=== PATIENT | male | born 1960 | race African-American/Black ===

== ENCOUNTER 2016-05-08 19:15 | Inpatient (IN) | payer BC ==
[~2016-05-08] VITALS: Ht 185.4 cm; Wt 114.8 kg
--- NOTE | ~2016-05-08 | H ---
[facility] [address] [address] HISTORY AND PHYSICAL Name: BRIANNA STALEY Room #: 459-P [facility] IN M.R.#: [id number] Admission: 05/08/16 Attend Phys: Asaf Saini Discharge: 05/11/16 Date of : 62 Report #: [id number] THIS REPORT FOR: //name// CC: Moris Simon DATE OF SERVICE: 05/08/2016 ATTENDING PHYSICIAN: Ton Simon M.D. PRIMARY CARE PHYSICIAN: Elia Brandon M.D. CHIEF COMPLAINT: Abdominal pain. HISTORY OF PRESENT ILLNESS: The patient is a 56-year-old -Citizen Of [place] female who said he was feeling fine up until yesterday morning. He woke up with abdominal pain. The pain was a burning sensation. It did radiate under both ribs. He denies any associated nausea, vomiting or diarrhea. He had a normal bowel movement this morning. Denies any fevers or chills. The prior night, he had drunk some tequila. He says he normally just drinks on weekends, but he did have some tequila yesterday. He has had pancreatitis once in the past in 2006 and states his symptoms were similar, but he was having worst pain Previously. He did receive some pain medication in the ER and now states that it has worn off and is requesting pain medicine. PAST MEDICAL HISTORY: Diabetes, hypertension and anxiety. PAST SURGICAL HISTORY: None. ALLERGIES: LISINOPRIL caused angioedema with facial swelling. HOME MEDICATIONS: Amlodipine 5 mg daily, valsartan 320 mg daily, tramadol 50 mg every 4-6 hours p.r.n., clonazepam 1 mg t.i.d., Neurontin 300 mg b.i.d., bupropion 300 mg daily, trazodone 150 mg at bedtime, Seroquel 100 mg at bedtime, hydrochlorothiazide 12.5 mg daily, Lantus insulin 50 units at bedtime, but he says if his blood sugar is less than 80, he does not take it and Humalog insulin sliding scale with meals. SOCIAL HISTORY: The patient lives at home with his . He does smoke about 6 cigarettes per day. He says he is cutting back. He previously had smoked up to 1 pack of cigarettes per day for about 25 years. He does drink alcohol. He currently states he drinks hard alcohol up to 3-4 drinks only on weekends. He last drank some tequila yesterday. He says he does not drink every day, and he does not have any history of alcohol withdrawal. Previous ER visit from February of this year stated that he has a history of alcoholism and had been sober for 6 years until he started drinking again in 01/2016. During that ER visit in [address] [address] HISTORY AND PHYSICAL Name: BRIANNA STALEY Room #: 459-P [facility] IN M.R.#: [id number] Admission: 05/08/16 Attend Phys: Asaf Saini Discharge: 05/11/16 Date of : 62 Report #: [id number] February, he was intoxicated with an alcohol level of 287. He lives at home with his . He works for [employer]. FAMILY HISTORY: His mother from natural causes. His father from an [place] at the age of 49. REVIEW OF SYSTEMS: A 12-point review of systems was reviewed with the patient and otherwise negative unless stated in the HPI. PHYSICAL EXAMINATION: GENERAL: The patient is an alert male in no acute distress. VITAL SIGNS: Temperature is 36.9, heart rate 117, respirations 20, blood pressure is 123/80 and oxygen 99% on room air. HEENT: PERRLA. Sclerae are nonicteric. Oral mucosa is pink and moist. NECK: Supple, no JVD noted. CARDIOVASCULAR: Normal S1 and S2. No murmurs, rubs or gallops. RESPIRATORY: Breath sounds are clear bilaterally. No wheezing or rhonchi. Breathing is nonlabored. ABDOMEN: Round and soft. He is tender in the left upper quadrant and epigastric areas. Bowel sounds are positive. VASCULAR: Trace bilateral lower extremity edema. Pedal pulses are 2+. NEUROLOGIC: The patient is alert and oriented x 3. Speech is clear. He is answering questions appropriately and follows commands. No focal weakness noted. PSYCHIATRIC: The patient is pleasant and cooperative, although he is somewhat anxious appearing. LABORATORY AND DIAGNOSTIC DATA: WBC is 9.2, hemoglobin 16.4 and platelets 147. Sodium 128, potassium 3.8, BUN 7, creatinine 1.4, glucose 206, bilirubin is 1.2, AST 130 and ALT 74. Alcohol level is less than 10. Lipase level is greater than 1500. Abdominal ultrasound showed no cholelithiasis with normal common bile duct. There was mild prominence of the pancreas and hepatomegaly and CT of the abdomen shows findings consisting with acute pancreatitis. There is also hepatic steatosis. ASSESSMENT AND PLAN: 1. Acute pancreatitis. This is likely alcohol induced as he did drink hard alcohol yesterday. We will also check a triglyceride level. Continue with IV fluids, antiemetics and n.p.o. status. Continue with Dilaudid for pain control. We will repeat a lipase in the morning. 2. Alcohol abuse. The patient denies daily use. He does have a history of alcoholism with binge drinking. We will monitor for any signs of alcohol withdrawal. His current alcohol level is less than 10, so he may start to have some withdrawal symptoms soon. We will use Ativan p.r.n. He does have some mildly elevated liver enzymes, which is likely due to chronic alcohol use as well. [facility] [address] [place] [address] HISTORY AND PHYSICAL Name: BRIANNA STALEY Room #: 459-P [facility] IN M.R.#: [id number] Admission: 05/08/16 Attend Phys: Asaf Saini Discharge: 05/11/16 Date of : 62 Report #: [id number] 3. Acute kidney injury. The patient denies any history of chronic kidney disease. We will gently hydrate and follow labs. 4. Hypertension. Blood pressure is stable. Resume home meds and monitor. We will hold hydrochlorothiazide since we are giving IV fluids. 5. Diabetes. Blood sugars are elevated. We will add sliding scale insulin but hold Lasix while n.p.o. 6. Anxiety. This may be a component of alcohol withdrawal. We will add Ativan p.r.n. 7. Deep vein thrombosis prophylaxis. Place sequential compression devices. 8. Hyponatremia likely due to alcohol use and mild dehydration. Continue with normal saline and follow labs. 9. Tobacco abuse. The patient has been advised to quit. He denies a need for a nicotine patch. We will continue to follow the patient closely throughout the hospitalization and make changes based on clinical status. <ELECTRONICALLY SIGNED> By: JESSICA Latham 05/16/16 0646 [id number] 0321 JESSICA Latham /nt
--- NOTE | ~2016-05-08 | EKG ---
[address] [place] [address] ELECTROCARDIOGRAM REPORT Name: BRIANNA STALEY Room #: 459-[facility] IN M.R.#: [id number] Admission: 05/08/16 Attend Phys: Asaf Saini Discharge: 05/11/16 Date of : 62 Report #: [id number] THIS REPORT FOR: //name// [facility] Test Date: 2016-05-09 Test Time: 10:48:11 Pat Name: BRIANNA STALEY Department: Room: 459 Gender: M Net Trainer: [facility] : 1960 Requested By: Asaf Saini Order Number: [id number] MD: Keanu Rodriguez Measurements Intervals [place] Rate: 106 P: 67 [place]: 146 QRS: 121 QRSD: 94 T: 27 QT: 354 QTc: 471 Interpretive Statements Sinus tachycardia Left posterior fascicular block Abnormal R-wave progression, late transition No previous ECGs available for comparison Electronically Signed On 05-13-2016 8:04:20 DEVELOPMENT ENGINEER by Keanu Rodriguez [email or web address] <ELECTRONICALLY SIGNED> By: Keanu Rodriguez MD, [facility] 05/13/16 0804 1048 1048 Keanu Rodriguez MD, [facility] /EPI
[~2016-05-08 19:15] MED LIST: AMBIEN 5 MG TABL5 M1 PO; DIOVAN320 MG PO; FLEXERIL PO; HUMALOG100 UNIT/1 SQ; IBUPROFEN 600600 M1 PO; LANTUS100 UNIT/M SUBQ; NORCO 5-325 TA1 EACH PO; NORVASC 5 MG TAB5 MG PO; QUINU10 PD; TRAZODONE 150150 M1 PO; ULTRAM 50MG TAB50 MG PO
[2016-05-08 19:17] VITALS: BP 123/80
[2016-05-08] MEDS ORDERED: WELLBUTRIN SR200 MG PO (19:19)
[2016-05-08 19:42] LABS: ABSOLUTE NEUTROPHILS 7.1 thou/uL (1.4-8.2); BASOPHILS 0.5 % (0.0-2.0); EOSINOPHILS 0.6 % (0.0-3.0); HEMATOCRIT 46.7 % (42.0-52.0); HEMOGLOBIN 16.4 gm/dL (14.0-18.0); LYMPHOCYTES 17.4 % (24.0-44.0); MCH 32.5 pg (26.0-34.0); MCHC 35.2 % (28.0-37.0); MCV 92.4 fL (80.0-100.0); MONOCYTES 4.5 % (1.0-8.0); PLATELET COUNT 147 thou/uL (150-400); RBC 5.05 mil/uL (4.50-6.00); RDW 14.2 % (10.5-14.5); WBC 9.2 thou/uL (4.0-11.0)
[2016-05-08 19:45] LABS: MANUAL DIFF NO
[2016-05-08 19:51] LABS: POTASSIUM 3.8 mmol/L (3.5-5.1)
[2016-05-08 20:18] LABS: CALCIUM 7.4 mg/dL (8.5-10.1); CREATININE 1.4 mg/dL (0.6-1.3)
[2016-05-08 20:23] LABS: TOTAL PROTEIN 6.5 g/dL (6.4-8.2)
[2016-05-08 20:24] LABS: ALBUMIN 3.8 g/dL (3.4-5.0); TOTAL BILIRUBIN 1.2 mg/dL (<0.1-1.0)
[2016-05-08 20:25] LABS: DIRECT BILIRUBIN 0.4 mg/dL (<0.1-0.3)
[2016-05-08 22:09] VITALS: BP 118/79
[2016-05-08 22:20] VITALS: BP 142/85; BP 142/858
[2016-05-09] VITALS (12 sets, daily range): BP systolic 78–107; BP diastolic 30–523
[2016-05-09] MEDS ORDERED: CLONAZEPAM 1 MG1 M1 PO (01:59)
[2016-05-09] MEDS ORDERED: NEURONTIN 300300 M1 PO (02:01)
[2016-05-09] MEDS ORDERED: HYDROCHLOROTH12.5 M1 PO (02:01)
[2016-05-09] MEDS ORDERED: SEROQUEL 50 MG50 MG PO (02:02)
[2016-05-09 06:17] LABS: HEMATOCRIT 42.9 % (42.0-52.0); HEMOGLOBIN 14.9 gm/dL (14.0-18.0); MCH 31.9 pg (26.0-34.0); MCHC 34.8 % (28.0-37.0); MCV 91.8 fL (80.0-100.0); RBC 4.67 mil/uL (4.50-6.00); RDW 14.3 % (10.5-14.5); WBC 14.3 thou/uL (4.0-11.0)
[2016-05-09 06:48] LABS: CALCIUM 6.5 mg/dL (8.5-10.1); CREATININE 2.3 mg/dL (0.6-1.3); POTASSIUM 3.9 mmol/L (3.5-5.1)
[2016-05-10 00:06] LABS: GLYCOHEMOGLOBIN (HGB A1C) 5.8 % (4.8-5.6)
[2016-05-10 04:21] LABS: HEMATOCRIT 36.7 % (42.0-52.0); MCH 31.7 pg (26.0-34.0); MCHC 33.9 % (28.0-37.0); MCV 93.6 fL (80.0-100.0); RBC 3.93 mil/uL (4.50-6.00); RDW 14.7 % (10.5-14.5)
[2016-05-10 04:22] LABS: HEMOGLOBIN 12.5 gm/dL (14.0-18.0)
[2016-05-10 04:35] LABS: INR 1.1; PROTIME 11.9 Seconds (9.3-11.4)
[2016-05-10 04:43] LABS: ALBUMIN 2.3 g/dL (3.4-5.0); CREATININE 2.5 mg/dL (0.6-1.3); MAGNESIUM 1.6 mg/dL (1.8-2.4); POTASSIUM 4.1 mmol/L (3.5-5.1); TOTAL BILIRUBIN 0.9 mg/dL (<0.1-1.0); TOTAL PROTEIN 5.9 g/dL (6.4-8.2)
[2016-05-10 04:58] LABS: CALCIUM 6.1 mg/dL (8.5-10.1)
[2016-05-10 05:00] VITALS: BP 83/50
[2016-05-10 08:00] VITALS: BP 92/55
[2016-05-10 12:00] VITALS: BP 104/63
[2016-05-10 16:00] VITALS: BP 114/71
[2016-05-10 20:15] VITALS: BP 110/63
[2016-05-10 23:12] VITALS: BP 111/73
[2016-05-11 02:07] LABS: GLYCOHEMOGLOBIN (HGB A1C) 5.8 % (4.8-5.6)
[2016-05-11 04:52] VITALS: BP 129/72
[2016-05-11 05:42] LABS: HEMATOCRIT 29.2 % (42.0-52.0); MCH 32.4 pg (26.0-34.0); MCHC 34.1 % (28.0-37.0); MCV 94.9 fL (80.0-100.0); RBC 3.07 mil/uL (4.50-6.00); RDW 14.5 % (10.5-14.5); WBC 10.6 thou/uL (4.0-11.0)
[2016-05-11 05:51] LABS: HEMOGLOBIN 9.9 gm/dL (14.0-18.0)
[2016-05-11 05:58] LABS: ALBUMIN 1.9 g/dL (3.4-5.0); POTASSIUM 3.6 mmol/L (3.5-5.1); TOTAL BILIRUBIN 0.9 mg/dL (<0.1-1.0); TOTAL PROTEIN 5.5 g/dL (6.4-8.2)
[2016-05-11 06:00] LABS: CREATININE 1.3 mg/dL (0.6-1.3)
[2016-05-11 06:04] LABS: CALCIUM 5.8 mg/dL (8.5-10.1)
[2016-05-11 08:00] VITALS: BP 144/82
[2016-05-11 11:43] VITALS: BP 106/64
[2016-05-11] MEDS ORDERED: FLOMAX0.4 MG PO (12:25)
[2016-05-11] MEDS ORDERED: GEMFIBROZIL 60600 M1 PO (12:25)
[2016-05-11 12:59] VITALS: BP 106/64
== END 2016-05-11 14:03 | disposition home or self-care (01) | DRG 439 ==
LOC: ER 19:15 → 4E 21:47 → EROBS 21:47 → 4E 22:10 → 4W 05-09 11:15
PROVIDERS: Emergency Medicine; Hospitalist; Nurse Practitioner Acute Care
DX: K85.20 Alcohol induced acute pancreatitis without necrosis or infection (principal); N17.9 Acute kidney failure, unspecified; E87.1 Hypo-osmolality and hyponatremia; F10.10 Alcohol abuse, uncomplicated; E86.0 Dehydration; F41.9 Anxiety disorder, unspecified; I10 Essential (primary) hypertension; E11.9 Type 2 diabetes mellitus without complications; F17.210 Nicotine dependence, cigarettes, uncomplicated; Z88.8 Allergy status to other drugs, medicaments and biological substances; Z79.4 Long term (current) use of insulin; Y90.9 Presence of alcohol in blood, level not specified; Z82.49 Family history of ischemic heart disease and other diseases of the circulatory system
CPT/HCPCS: 10045; 10183

== ENCOUNTER 2017-04-07 17:13 | Inpatient (IN) | payer BC ==
[~2017-04-07] VITALS: Ht 185.4 cm; Wt 122.5 kg
--- NOTE | ~2017-04-07 | EKG ---
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[facility] : 1960 Requested By: Checo Freeman Order Number: [id number] MD: Guillermo Harrington Measurements Intervals [place] Rate: 69 P: 42 NC: 155 QRS: -55 QRSD: 106 T: 23 QT: 432 QTc: 463 Interpretive Statements Sinus rhythm Left anterior fascicular block Abnormal R-wave progression, late transition Compared to ECG 05/09/2016 10:48:11 Left anterior fascicular block now present Sinus tachycardia no longer present Left posterior fascicular block no longer present Electronically Signed On 04-07-2017 20:24:20 INSECTICIDE SPRAYER by Guillermo Harrington [email or web address] <ELECTRONICALLY SIGNED> By: Guillermo Harrington MD 04/07/172023 18 18 Guillermo Harrington MD /EPI
[~2017-04-07 17:13] MED LIST changes: +CLONAZEPAM 1 MG1 M1 PO; +FLOMAX0.4 MG PO; +GEMFIBROZIL 60600 M1 PO; +HYDROCHLOROTH12.5 M1 PO; +NEURONTIN 300300 M1 PO; +SEROQUEL 50 MG50 MG PO; +WELLBUTRIN SR200 MG PO
[2017-04-07 17:22] VITALS: BP 130/84
[2017-04-07 18:23] LABS: ABSOLUTE NEUTROPHILS 6.7 thou/uL (1.4-8.2); BASOPHILS 0.2 % (0.0-2.0); EOSINOPHILS 0.2 % (0.0-3.0); HEMATOCRIT 44.5 % (42.0-52.0); HEMOGLOBIN 15.2 gm/dL (14.0-18.0); LYMPHOCYTES 12.9 % (24.0-44.0); MCH 30.5 pg (26.0-34.0); MCHC 34.1 g/dL (28.0-37.0); MCV 89.6 fL (80.0-100.0); MONOCYTES 5.7 % (1.0-8.0); PLATELET COUNT 157 thou/uL (150-400); RBC 4.97 mil/uL (4.50-6.00); RDW 13.4 % (10.5-14.5); WBC 8.3 thou/uL (4.0-11.0)
[2017-04-07 18:27] LABS: ANION GAP 12 mmol/L (7-16); BUN 20 mg/dL (7-18); CALCIUM 8.4 mg/dL (8.5-10.1); CHLORIDE 94 mmol/L (98-107); CO2 27 mmol/L (21-32); CREATININE 1.6 mg/dL (0.7-1.3); GLUCOSE 150 mg/dL (74-106); POTASSIUM 3.3 mmol/L (3.5-5.1); SODIUM 133 mmol/L (136-145)
[2017-04-07 18:28] LABS: MANUAL DIFF NO
[2017-04-07 18:54] LABS: ALBUMIN 3.8 g/dL (3.4-5.0); ALKALINE PHOSPHATASE 54 U/L (46-116); DIRECT BILIRUBIN 0.2 mg/dL (<0.1-0.3); SGPT 88 U/L (30-65); TOTAL BILIRUBIN 1.1 mg/dL (<0.1-1.0); TOTAL PROTEIN 7.1 g/dL (6.4-8.2); TROPONIN-I < 0.04 ng/mL (<0.06)
[2017-04-07 18:59] LABS: SGOT 60 U/L (15-37)
[2017-04-07 20:45] VITALS: BP 130/84
[2017-04-07 21:04] VITALS: BP 137/76
[2017-04-07] MEDS ORDERED: SYNTHROID100 MCG PO (21:04)
[2017-04-07 22:00] VITALS: BP 115/68
[2017-04-08 03:57] LABS: HEMATOCRIT 42.1 % (42.0-52.0); HEMOGLOBIN 14.3 gm/dL (14.0-18.0); MCH 30.6 pg (26.0-34.0); MCV 89.9 fL (80.0-100.0); RBC 4.68 mil/uL (4.50-6.00); RDW 13.5 % (10.5-14.5)
[2017-04-08 03:58] LABS: ALBUMIN 3.2 g/dL (3.4-5.0); CALCIUM 7.9 mg/dL (8.5-10.1); CREATININE 1.2 mg/dL (0.7-1.3); POTASSIUM 3.6 mmol/L (3.5-5.1); TOTAL PROTEIN 6.4 g/dL (6.4-8.2)
[2017-04-08 04:00] VITALS: BP 131/74
[2017-04-08 07:55] VITALS: BP 146/86
[2017-04-08 09:08] LABS: GLYCOHEMOGLOBIN (HGB A1C) 6.7 % (4.8-5.6)
[2017-04-08 15:30] VITALS: BP 136/83
[2017-04-08 19:45] VITALS: BP 136/76
[2017-04-09 03:37] VITALS: BP 141/74
[2017-04-09 06:24] LABS: ABSOLUTE NEUTROPHILS 4.1 thou/uL (1.4-8.2); BASOPHILS 0.2 % (0.0-2.0); EOSINOPHILS 3.3 % (0.0-3.0); HEMATOCRIT 38.3 % (42.0-52.0); HEMOGLOBIN 12.9 gm/dL (14.0-18.0); MCH 30.6 pg (26.0-34.0); MCHC 33.5 g/dL (28.0-37.0); MCV 91.3 fL (80.0-100.0); MONOCYTES 5.3 % (1.0-8.0); PLATELET COUNT 105 thou/uL (150-400); POLYS 64.2 % (36.0-66.0); RDW 13.6 % (10.5-14.5); WBC 6.3 thou/uL (4.0-11.0)
[2017-04-09 06:28] LABS: MANUAL DIFF NO
[2017-04-09 06:43] LABS: ALBUMIN 2.7 g/dL (3.4-5.0); CREATININE 1.1 mg/dL (0.7-1.3); MAGNESIUM 2.1 mg/dL (1.8-2.4); POTASSIUM 3.6 mmol/L (3.5-5.1); TOTAL BILIRUBIN 0.7 mg/dL (<0.1-1.0); TOTAL PROTEIN 6.2 g/dL (6.4-8.2)
[2017-04-09 08:03] VITALS: BP 150/79
[2017-04-09 17:05] VITALS: BP 160/90
[2017-04-09 19:56] VITALS: BP 151/83
[2017-04-10 03:31] VITALS: BP 133/81
[2017-04-10 04:37] LABS: HEMATOCRIT 35.4 % (42.0-52.0); HEMOGLOBIN 11.8 gm/dL (14.0-18.0); MCH 30.5 pg (26.0-34.0); MCHC 33.2 g/dL (28.0-37.0); MCV 91.7 fL (80.0-100.0); RBC 3.86 mil/uL (4.50-6.00); RDW 13.3 % (10.5-14.5); WBC 5.3 thou/uL (4.0-11.0)
[2017-04-10 04:50] LABS: CALCIUM 8.2 mg/dL (8.5-10.1); CREATININE 1.1 mg/dL (0.7-1.3); MAGNESIUM 2.1 mg/dL (1.8-2.4); POTASSIUM 3.9 mmol/L (3.5-5.1)
[2017-04-10 07:37] VITALS: BP 163/104
[2017-04-10 15:36] VITALS: BP 158/95
[2017-04-10 20:00] VITALS: BP 167/84
[2017-04-11 03:33] LABS: HEMATOCRIT 36.6 % (42.0-52.0); HEMOGLOBIN 12.1 gm/dL (14.0-18.0); MCH 30.3 pg (26.0-34.0); MCHC 33.2 g/dL (28.0-37.0); MCV 91.1 fL (80.0-100.0); RBC 4.02 mil/uL (4.50-6.00); RDW 13.5 % (10.5-14.5); WBC 4.7 thou/uL (4.0-11.0)
[2017-04-11 03:44] LABS: CALCIUM 9.2 mg/dL (8.5-10.1); CREATININE 1.1 mg/dL (0.7-1.3); POTASSIUM 3.7 mmol/L (3.5-5.1)
[2017-04-11 04:30] VITALS: BP 158/89
[2017-04-11 07:50] VITALS: BP 156/95
[2017-04-11] MEDS ORDERED: PERCOCET PO (08:45)
[2017-04-11 09:01] VITALS: BP 156/95
[2017-04-11] MEDS ORDERED: GEMFIBROZIL 60600 M1 PO (13:28)
== END 2017-04-11 13:51 | disposition home or self-care (01) | DRG 439 ==
LOC: ER 17:13 → 4E 20:10 → EROBS 20:10 → 4E 21:20
PROVIDERS: Hospitalist; Internal Medicine; Nurse Practitioner; Nurse Practitioner Acute Care; Registered Nurse
DX: K85.90 Acute pancreatitis without necrosis or infection, unspecified (principal); N17.9 Acute kidney failure, unspecified; I10 Essential (primary) hypertension; E87.6 Hypokalemia; R74.0 Nonspecific elevation of levels of transaminase and lactic acid dehydrogenase [LDH]; E11.9 Type 2 diabetes mellitus without complications; F41.9 Anxiety disorder, unspecified; E78.1 Pure hyperglyceridemia; Z88.8 Allergy status to other drugs, medicaments and biological substances; Z82.49 Family history of ischemic heart disease and other diseases of the circulatory system; Z87.891 Personal history of nicotine dependence; Z72.89 Other problems related to lifestyle; Z79.899 Other long term (current) drug therapy; Z79.4 Long term (current) use of insulin
CPT/HCPCS: 10084

== ENCOUNTER 2017-08-03 14:36 | Inpatient (IN) | payer BC ==
[~2017-08-03] VITALS: Ht 185.4 cm; Wt 113.4 kg
[~2017-08-03 14:36] MED LIST changes: +PERCOCET PO; +SYNTHROID100 MCG PO
[2017-08-03 14:44] VITALS: BP 199/116
[2017-08-03 15:09] LABS: ABSOLUTE NEUTROPHILS 3.2 thou/uL (1.4-8.2); EOSINOPHILS 0.2 % (0.0-3.0); HEMATOCRIT 42.8 % (42.0-52.0); HEMOGLOBIN 14.8 gm/dL (14.0-18.0); LYMPHOCYTES 45.7 % (24.0-44.0); MCH 31.6 pg (26.0-34.0); MCHC 34.5 g/dL (28.0-37.0); MCV 91.5 fL (80.0-100.0); PLATELET COUNT 198 thou/uL (150-400); POLYS 49.1 % (36.0-66.0); RBC 4.67 mil/uL (4.50-6.00); RDW 14.8 % (10.5-14.5); WBC 6.6 thou/uL (4.0-11.0)
[2017-08-03 15:19] LABS: CALCIUM 8.4 mg/dL (8.5-10.1); CREATININE 1.2 mg/dL (0.7-1.3)
[2017-08-03 15:24] LABS: APTT 28.2 Seconds (24.5-32.8); PROTIME 10.7 Seconds (9.3-11.4)
[2017-08-03 17:37] VITALS: BP 199/116
[2017-08-03] MEDS ORDERED: HYDROCHLOROTH12.5 M2 PO (18:34)
[2017-08-03 18:42] VITALS: BP 195/102
[2017-08-03 18:53] LABS: HEMATOCRIT 43.7 % (42.0-52.0); HEMOGLOBIN 14.8 gm/dL (14.0-18.0)
[2017-08-03 19:40] VITALS: BP 177/109
[2017-08-03 20:00] LABS: MAGNESIUM 2.3 mg/dL (1.8-2.4); PHOSPHORUS 2.7 mg/dL (2.5-4.9)
[2017-08-03 20:24] LABS: FOLIC ACID 6.3 ng/mL (8.6-58.9)
[2017-08-03 23:25] VITALS: BP 124/69
[2017-08-04 01:12] LABS: HEMATOCRIT 38.6 % (42.0-52.0)
[2017-08-04 03:50] VITALS: BP 142/93
[2017-08-04 06:42] LABS: HEMOGLOBIN 13.3 gm/dL (14.0-18.0); MCH 31.1 pg (26.0-34.0); MCHC 33.2 g/dL (28.0-37.0); MCV 93.6 fL (80.0-100.0); RBC 4.28 mil/uL (4.50-6.00); WBC 5.6 thou/uL (4.0-11.0)
[2017-08-04 06:59] LABS: ALBUMIN 3.1 g/dL (3.4-5.0); CREATININE 1.1 mg/dL (0.7-1.3); POTASSIUM 4.1 mmol/L (3.5-5.1); TOTAL BILIRUBIN 0.8 mg/dL (<0.1-1.0); TOTAL PROTEIN 6.4 g/dL (6.4-8.2)
[2017-08-04 07:22] LABS: TSH 1.425 uIU/mL (0.358-3.740)
[2017-08-04 07:30] VITALS: BP 155/99
[2017-08-04 08:44] LABS: URINE BILIRUBIN NEGATIVE (Negative); URINE BLOOD NEGATIVE (Negative); URINE CLARITY CLEAR; URINE COLOR YELLOW; URINE GLUCOSE-RANDOM* NEGATIVE (Negative); URINE KETONES NEGATIVE (Negative); URINE LEUKOCYTES NEGATIVE (Negative); URINE NITRITE NEGATIVE (Negative); URINE PROTEIN (DIPSTICK) NEGATIVE (Negative); URINE SPECIFIC GRAVITY 1.025 (1.005-1.035); URINE UROBILINOGEN 0.2 E.U./dl (0.2-1.0)
[2017-08-04 08:52] LABS: AMP/METHAMP Negative (Negative); BARBITURATES Negative (Negative); BENZODIAZEPINES Negative (Negative); COCAINE Negative (Negative); METHADONE Negative (Negative); OPIATES Negative (Negative); PCP Negative (Negative)
[2017-08-04 11:10] VITALS: BP 158/102
[2017-08-04 12:22] VITALS: BP 158/102
== END 2017-08-04 12:49 | disposition home or self-care (01) | DRG 897 ==
LOC: ER 14:36 → EROBS 15:42 → 3W 15:42
PROVIDERS: Emergency Medicine; Hospitalist
DX: F10.129 Alcohol abuse with intoxication, unspecified (principal); E11.9 Type 2 diabetes mellitus without complications; I10 Essential (primary) hypertension; F41.9 Anxiety disorder, unspecified; E78.1 Pure hyperglyceridemia; E78.00 Pure hypercholesterolemia, unspecified; E66.9 Obesity, unspecified; E03.9 Hypothyroidism, unspecified; S31.119A Laceration without foreign body of abdominal wall, unspecified quadrant without penetration into peritoneal cavity, initial encounter; X58.XXXA Exposure to other specified factors, initial encounter; Z68.33 Body mass index [BMI] 33.0-33.9, adult; Z87.891 Personal history of nicotine dependence; Z82.49 Family history of ischemic heart disease and other diseases of the circulatory system; Z79.899 Other long term (current) drug therapy; Z88.8 Allergy status to other drugs, medicaments and biological substances; Y93.89 Activity, other specified; Y92.89 Other specified places as the place of occurrence of the external cause; Y99.8 Other external cause status; Z23 Encounter for immunization
CPT/HCPCS: 10080

== ENCOUNTER 2018-07-11 16:39 | Emergency (ER) | payer OTHER ==
[~2018-07-11] VITALS: Ht 182.9 cm; Wt 99.8 kg
[~2018-07-11 16:39] MED LIST changes: +HYDROCHLOROTH12.5 M2 PO
[2018-07-11 16:45] VITALS: BP 138/79
[2018-07-11] MEDS ORDERED: KEFLEX500 M1 PO (17:28)
== END 2018-07-11 17:43 | disposition home or self-care (01) ==
LOC: ER 16:39
DX: S91.114A Laceration without foreign body of right lesser toe(s) without damage to nail, initial encounter (principal); E11.9 Type 2 diabetes mellitus without complications; I10 Essential (primary) hypertension; E78.1 Pure hyperglyceridemia; F17.210 Nicotine dependence, cigarettes, uncomplicated; Z79.4 Long term (current) use of insulin; Z79.899 Other long term (current) drug therapy; Z88.8 Allergy status to other drugs, medicaments and biological substances; W26.8XXA Contact with other sharp object(s), not elsewhere classified, initial encounter; Y93.89 Activity, other specified; Y92.89 Other specified places as the place of occurrence of the external cause; Y99.8 Other external cause status

== ENCOUNTER 2019-03-14 16:04 | Emergency (ER) | payer OTHER ==
[~2019-03-14] VITALS: Ht 175.3 cm; Wt 113.4 kg
[~2019-03-14 16:04] MED LIST changes: +KEFLEX500 M1 PO
[2019-03-14 16:37] LABS: URINE BILIRUBIN NEGATIVE (Negative); URINE BLOOD 1+ (Negative); URINE CLARITY CLEAR; URINE COLOR YELLOW; URINE GLUCOSE-RANDOM* NEGATIVE (Negative); URINE KETONES 2+ (Negative); URINE LEUKOCYTES-REFLEX NEGATIVE (Negative); URINE NITRITE-REFLEX NEGATIVE (Negative); URINE PROTEIN (DIPSTICK) NEGATIVE (Negative); URINE SPECIFIC GRAVITY <= 1.005 (1.005-1.035); URINE UROBILINOGEN 0.2 E.U./dl (0.2-1.0)
[2019-03-14 17:00] LABS: BACTERIA-REFLEX 1-9 Few /HPF (None Seen); CASTS None Seen /LPF (None Seen); CRYSTALS None Seen /LPF (None Seen); SQUAMOUS None Seen /LPF (0-3); URINE RBC 0-2 Rare /HPF (0-2); URINE WBC-REFLEX None Seen /HPF (0-5)
[2019-03-14 19:25] LABS: HEMATOCRIT 37.1 % (42.0-52.0); HEMOGLOBIN 12.3 gm/dL (14.0-18.0); MCH 30.3 pg (26.0-34.0); MCHC 33.1 g/dL (28.0-37.0); MCV 91.6 fL (80.0-100.0); PLATELET COUNT 220 thou/uL (150-400); RBC 4.05 mil/uL (4.50-6.00); RDW 15.3 % (10.5-14.5); WBC 4.4 thou/uL (4.0-11.0)
[2019-03-14 19:43] LABS: ALBUMIN 3.5 g/dL (3.4-5.0); CREATININE 1.3 mg/dL (0.7-1.3); POTASSIUM 4.4 mmol/L (3.5-5.1); TOTAL BILIRUBIN 1.2 mg/dL (<0.1-1.0); TOTAL PROTEIN 7.2 g/dL (6.4-8.2)
[2019-03-14 20:17] LABS: ABSOLUTE NEUTROPHILS 1.5 thou/uL (1.4-8.2); PLATELET ESTIMATE NORMAL
[2019-03-14 20:18] VITALS: BP 161/82
[2019-03-14] MEDS ORDERED: VISTARIL 25 MG25 M1 PO (20:29)
--- NOTE | 2019-03-15 16:58 | EKG ---
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 : 1960 Requested By: Checo Freeman Order Number: [id number] MD: Keanu Rodriguez Measurements Intervals [place] Rate: 74 P: 51 MS: 137 QRS: -65 QRSD: 105 T: 29 QT: 440 QTc: 489 Interpretive Statements Sinus rhythm Left anterior fascicular block Abnormal R-wave progression, late transition Borderline prolonged QT interval Baseline wander in lead(s) II,III,aVF Compared to ECG 04/07/2017 18:19:38 No significant change was found Electronically Signed On 03-15-2019 16:58:00 VALET PARKING ATTENDANT by Keanu Rodriguez [email or web address] <ELECTRONICALLY SIGNED> By: Keanu Rodriguez MD, [facility] 03/15/19 1658 1618 1618 Keanu Rodriguez MD, [facility] /EPI
== END 2019-03-14 20:45 | disposition home or self-care (01) ==
LOC: ER 16:04
PROVIDERS: Physician Assistant
DX: F10.10 Alcohol abuse, uncomplicated (principal); Y90.0 Blood alcohol level of less than 20 mg/100 ml; R10.9 Unspecified abdominal pain; E11.9 Type 2 diabetes mellitus without complications; I10 Essential (primary) hypertension; F41.9 Anxiety disorder, unspecified; Z79.4 Long term (current) use of insulin; Z88.8 Allergy status to other drugs, medicaments and biological substances